=== PATIENT | male | born 1985 | race Caucasian/White ===

== ENCOUNTER 2017-01-04 14:26 | Emergency (ER) | payer MEDICAID ==
[~2017-01-04] VITALS: Ht 172.7 cm; Wt 82.5 kg
[2017-01-04 14:29] VITALS: Ht 172.7 cm; Wt 82.5 kg
[2017-01-04] MEDS ORDERED: KETOROLAC 60 MG INJ IM STA (15:31)
[2017-01-04] MEDS ORDERED: ONDANSETRON (ODT) 4 MG TAB ODT STA (15:31)
[2017-01-04] MEDS ORDERED: HYDROCODONE/APAP (10/325) TAB PO ONE (16:00)
--- NOTE | 2017-01-04 16:36 | RADRPT ---
PROCEDURE: XR Lumbar Spine. CLINICAL INDICATION: Lumbar spine pain. TECHNIQUE: AP, lateral, and cone-down lateral view of the lumbar spine were obtained. COMPARISON: No prior studies are available for comparison. FINDINGS: There is diffuse straightening the lumbar spine without reversal of normal lumbar lordosis. The rayray tebral body heights and marrow density are normal in appearance. There is preservation of the inter vertebral disc spaces. There is no significant facet spondylosis. The neural foramina appear paten t. The paraspinal soft tissues unremarkable. The posterior elements are unremarkable. IMPRESSION: 1. Straightening of the lumbar spine which may be related paraspinal muscle spasm versus positionin g. 2. Otherwise, normal radiographs of the lumbar spine. No evidence of fracture or significant degen erative disc disease. RPTAT: HGAS .Kenan Velásquez MD, Date Time Electronically viewed and signed by .Kenan Velásquez MD, on 01/04/2017 16:36 .S/
[2017-01-04] MEDS ORDERED: CYCL-319 PO (16:47)
[2017-01-04] MEDS ORDERED: HYDR-906 PO (16:47)
[2017-01-04] MEDS ORDERED: IBUP-1542 PO (16:47)
--- NOTE | 2017-01-04 16:51 | ERD ---
ER Documentation Chief Complaint Date/Time DATE: 01/04/17 TIME: 16:50 Chief Complaint Complains of back pain x 3 days HPI This 31-year-old male complaint of low back pain for last 3 days. It started after minimal awkward movement. He has had a history of similar complaints every few months. He has a history of falling off a roof 7 years ago but no diagnosis of fracture or permanent injury. Denies any fevers, vomiting, bowel bladder incontinence, weakness. ROS All systems reviewed and are negative except as per history of present illness. Medications Home Meds Active Scripts Cyclobenzaprine Hcl* (Cyclobenzaprine Hcl*) 10 Mg Tablet, 10 MG PO TID, #15 TAB Prov:KRISHNA PADRON MD 01/04/17 Hydrocodone/Acetaminophen (Bolivar 5-325 Tablet) 1 Each Tablet, 1 TAB PO Q6H Y for PAIN, #12 TAB Prov:KRISHNA PADRON MD 01/04/17 Ibuprofen* (Motrin*) 600 Mg Tab, 600 MG PO Q6, #20 TAB Prov:KRISHNA PADRON MD 01/04/17 PMhx/Soc Medical and Surgical Hx: pt denies Medical Hx, pt denies Surgical Hx Physical Exam Vitals Vital Signs Date Time Temp Pulse Resp B/P Pulse Ox O2 Delivery O2 Flow Rate FiO2 01/04/17 14:29 98.5 69 20 139/80 100 Physical Exam Const: [], Uncomfortable in a wheelchair, no apparent distress. Head: Atraumatic Eyes: Normal Conjunctiva ENT: Normal External Ears, Nose and Mouth. Neck: Full range of motion..~ No meningismus. Resp: Clear to auscultation bilaterally Cardio: Regular rate and rhythm, no murmurs Abd: Soft, non tender, non distended. Normal bowel sounds Skin: No petechiae or rashes Back: No midline or flank tenderness. Mild generalized paraspinous muscle tenderness in the L4-L5 area. No appreciable midline tenderness or deformities. Ext: No cyanosis, or edema Neur: Awake and alert Psych: Normal Mood and Affect Results 24 hrs Current Medications Medications (Trade) Dose Ordered Sig/Ivana Route PRN Reason Start Time Stop Time Status Last Admin Dose Admin Ketorolac Tromethamine (Toradol) 60 mg ONCE STAT IM 01/04/17 15:31 01/04/17 15:33 DC 01/04/17 15:43 Acetaminophen/ Hydrocodone Bitart (Bolivar (10/325)) 1 tab ONCE ONCE PO 01/04/17 16:00 01/04/17 16:01 DC 01/04/17 15:43 Ondansetron HCl (Zofran Odt) 8 mg ONCE STAT ODT 01/04/17 15:31 01/04/17 15:33 DC 01/04/17 15:43 Procedures/MDM X-ray LS-Spine 3V Interpreted by me: Bones: No fracture, or lytic lesions Joints: No dislocation Foreign body: None. Impression-no acute findings on lumbar spine x-ray Patient is given Toradol 60 mg IM. Patient was given was given Bolivar 10 mg of mouth and Zofran by mouth.. Patient presents with low back pain after minimal ocular movement. Likely has musculoskeletal lumbar strain. Signs or symptoms do not suggest fracture, dislocation, cauda equina syndrome, epidural abscess, genitourinary etiology. We treated with instructions for back exercises, tramadol and ibuprofen and Flexeril. Patient denies any primary care and will referred to local [facility] for further evaluation and treatment. The patient was stable with no new complaints during the ER course. Clinically , there is no current evidence to suggest meningitis, sepsis, acute abdomen, pneumonia, acute coronary syndrome, pulmonary embolism, or any other emergent condition appearing to require further evaluation or hospitalization. The patient should certainly return for any new or worsening symptoms per the aftercare instructions. They should otherwise follow-up with her primary care doctor for reevaluation this week. Departure Diagnosis: Primary Impression: Injury of back Encounter type: initial encounter Qualified Code: S39.92XA - Injury of back , initial encounter Condition: Stable Patient Instructions: Back Exercises, Lumbar, Back Sprain/Strain [facility] Usted se thompson hecho un examen mdico de control que le indica que no est en josef condicin que requiera tratamiento urgente en el Departamento de Emergencia. Un estudio ms profundo y el tratamiento de fields condicin pueden esperar sin ningn riesgo hasta que usted sea atendida/o en el consultorio de fields mdico o josef cl ed. Es responsabilidad suya arreglar josef geetha para el seguimiento del soumya. MANEJO DE CONDICIONES NO URGENTES EN EL FUTURO 1) Si usted tiene un mdico de atencin primaria: Usted debera llamar a fields mdico de atencin primaria antes de venir al departamento de emergencia. Despus de las horas de consultorio, fields doctor o fields asociado/a est disponible por telfono. El mdico o enfermero de arina en el servicio telefnico puede asesorarle por rush medio para atender el problema, o soumya contrario se puede programar josef geetha. 2) Si usted no tiene un mdico de atencin primaria: Llame al mdico o clnica de referencia que aparece abajo anita las horas de consultorio para hacer josef geetha para que le vean. CLINICAS: [facility] [phone] [facility] [phone] [facility] [facility] [phone] [facility] [facility] [phone] [facility] [place] [id number] [phone] [facility]. [phone] [address] Additional Instructions: X-ray normal. Perform exercises at home. Follow-up with primary doctor or for new or worsening symptoms. KRISHNA PADRON MD Jan 04, 2017 16:51
== END 2017-01-04 17:04 | disposition home or self-care (01) ==
LOC: FTE 14:26
DX: S39.92XA Unspecified injury of lower back, initial encounter (principal); X58.XXXA Exposure to other specified factors, initial encounter; Y92.9 Unspecified place or not applicable
CPT/HCPCS: 72100; 96372; J1885; Z7502; Z7610

== ENCOUNTER 2019-01-22 18:16 | Emergency (ER) | payer MEDICAID ==
[~2019-01-22] VITALS: Wt 84.5 kg
[~2019-01-22 18:16] MED LIST: ALBU18HF INHALATION; CYCL10TA7 PO; HYDR-4011 PO; IBUP-1542 PO
[2019-01-22] MEDS ORDERED: KETOROLAC 30 MG INJ IV STA (21:18)
[2019-01-22 22:09] VITALS: BP 137/83; PULSE 65; RESP 18
== END 2019-01-22 22:10 | disposition home or self-care (01) ==
LOC: FTE 18:16
DX: R10.31 Right lower quadrant pain (principal); R05 Cough
CPT/HCPCS: 36415; 71045; 74176; 80053; 81003; 83690; 85025; 96374; J1885; Z7502